=== PATIENT | male | born 1935 ===

== ENCOUNTER 2022-03-03 20:43 | Outpatient (CLI) | payer MEDICARE, OTHER | END 2022-03-03 20:44 | disposition EMS.NT | LOC: EMS 20:43 | DX: Z03.89 Encounter for observation for other suspected diseases and conditions ruled out (principal) ==

== ENCOUNTER 2022-03-04 02:19 | Outpatient (CLI) | payer MEDICARE, OTHER | END 2022-03-04 02:20 | disposition EMS.NT | LOC: EMS 02:19 | DX: Z03.89 Encounter for observation for other suspected diseases and conditions ruled out (principal) ==